=== PATIENT | male | born 1955 | race Caucasian/White ===

== ENCOUNTER 2016-06-17 10:41 | Outpatient (CLI) | payer OTHER ==
[2016-06-17 11:49] LABS: ALT (SGPT) 90 U/L (0-55); AST (SGOT) 56 U/L (5-34); Alkaline Phosphatase 65 U/L (40-150); Anion Gap 15 mmol/L (10-20); BUN (Urea Nitrogen) 17 mg/dL (8.4-25.7); Bilirubin, Total 0.6 mg/dL (0.2-1.2); Calc. Creatinine Clearance 0 mL/min (70-130); Calcium 9.9 mg/dL (7.8-10.44); Carbon Dioxide 26 mmol/L (23-31); Chloride 105 mmol/L (98-107); Estimated GFR-MDRD 85; LDL Cholesterol, Calculated 122 mg/dL; Protein, Total 7.4 g/dL (5.8-8.1)
[2016-06-17 11:50] LABS: #Basophils 0.1 thou/uL (0.0-0.2); #Eosinphils 0.2 thou/uL (0.0-0.7); #Lymphocytes 2.1 thou/uL (1.20-3.40); #Monocytes 0.5 thou/uL (0.11-0.59); #Neutrophils 3.9 thou/uL (1.40-6.50); %Basophils 1.4 % (0.0-1.0); %Eosinophils 3.2 % (0.0-10.0); %Monocytes 7.8 % (0.0-10.0); Hematocrit 48.8 % (42.0-52.0); Mean Platelet Volume 7.2 fL (7.4-10.4); Red Blood Cell (RBC) Count 5.85 mill/uL (4.70-6.10); White Blood Cell (WBC) Count 6.8 thou/uL (4.8-10.8)
[2016-06-17 12:09] LABS: Hemoglobin A1c 9.4 % (4.0-6.0)
[2016-06-17 17:58] LABS: Microalbumin Urine Less than 1.0 mg/dL (0.5-50.0)
== END 2016-06-17 10:42 | disposition home or self-care (01) ==
LOC: BURLAB 10:41
PROVIDERS: ATTEND Family Medicine
DX: E11.9 Type 2 diabetes mellitus without complications (principal); I10 Essential (primary) hypertension; Z82.49 Family history of ischemic heart disease and other diseases of the circulatory system
CPT/HCPCS: 36415; 80053; 80061; 82043; 82570; 83036; 84443; 85025

== ENCOUNTER 2017-02-17 11:11 | Outpatient (CLI) | payer OTHER ==
[2017-02-17 16:53] LABS: Hemoglobin A1c 7.5 % (4.0-6.0)
[2017-02-17 17:15] LABS: ALT (SGPT) 62 U/L (8-55); AST (SGOT) 41 U/L (5-34); Albumin 4.3 g/dL (3.4-4.8); Alkaline Phosphatase 55 U/L (40-150); Anion Gap 16 mmol/L (10-20); Bilirubin, Total 0.6 mg/dL (0.2-1.2); Calc. Creatinine Clearance 0 mL/min (70-130); Calcium 9.6 mg/dL (7.8-10.44); Carbon Dioxide 24 mmol/L (23-31); Cardiac Risk 4.9 (Less than 4.5); Chloride 106 mmol/L (98-107); Cholesterol 212 mg/dl (< 200 Desired); Estimated GFR-MDRD 81; Globulin 2.8 g/dL (2.4-3.5); Glucose 133 mg/dL (80-115); HDL Cholesterol 43 mg/dL (>60 Neg Risk); LDL Cholesterol, Calculated 135 mg/dL; Potassium 4.5 mmol/L (3.5-5.1); Protein, Total 7.1 g/dL (5.8-8.1); Sodium 141 mmol/L (136-145); Triglycerides 168 mg/dL (Less than 150)
[2017-02-17 17:53] LABS: BUN (Urea Nitrogen) 18 mg/dL (8.4-25.7)
== END 2017-02-17 11:12 | disposition home or self-care (01) ==
LOC: LABLEX 11:11
PROVIDERS: ATTEND Nurse Practitioner
DX: Z12.5 Encounter for screening for malignant neoplasm of prostate (principal); K76.0 Fatty (change of) liver, not elsewhere classified; E11.9 Type 2 diabetes mellitus without complications; I10 Essential (primary) hypertension
CPT/HCPCS: 80053; 80061; 83036; G0103